=== PATIENT | female | born 2005 | race Two or more races ===

== ENCOUNTER 2025-04-27 16:30 | Emergency (ER) | payer OTHER ==
[~2025-04-27] VITALS: Ht 165.1 cm; Wt 55.8 kg
[2025-04-27] MEDS ORDERED: CLINDAMYCIN PHOSPHATE 150 MG/ML (600mg) IV SCH (18:30)
[2025-04-27] MEDS ORDERED: METHYLPREDNISOLONE SOD SUCC 125 MG VIAL IV SCH (18:30)
[2025-04-27] MEDS ORDERED: DIPHENHYDRAMINE HCL 50 MG/ML VIAL 1ML IV SCH (18:30)
[2025-04-27] MEDS ORDERED: FAMOTIDINE/PF 20 MG/2 ML VIAL IV SCH (18:30)
[2025-04-27] MEDS ORDERED: CLINDAMYCIN PHOSPHATE 150 MG/ML (300mg) ONE (18:40)
[2025-04-27] MEDS ORDERED: DIPHENHYDRAMINE HCL 50 MG/ML VIAL 1ML ONE (18:40)
[2025-04-27] MEDS ORDERED: FAMOTIDINE/PF 20 MG/2 ML VIAL ONE (18:41)
[2025-04-27] MEDS ORDERED: METHYLPREDNISOLONE SOD SUCC 125 MG VIAL ONE (18:41)
[2025-04-27 18:44] LABS: BASO % 0.3 % (0.1-1.2); EOS # 0.09 (0.04-0.54); EOS % 0.9 % (0.7-7.0); HEMATOCRIT 44.3 % (34.1-44.9); HEMOGLOBIN 14.8 g/dL (11.2-15.7); LYMPH # 2.01 (1.18-3.74); LYMPH % 19.1 % (19.3-53.1); MEAN CORPUSCULAR HEMOGLOBIN 31.6 pg (25.6-32.2); MONO # 0.89 (0.24-0.82); MONO % 8.4 % (4.7-12.5); NEUT # 7.51 (1.56-6.13); NEUT % 71.1 % (34.0-71.1); PLATELET COUNT 207 K/uL (163-369); RED BLOOD COUNT 4.68 M/uL (3.93-5.22); RED CELL DISTRIBUTION WIDTH 12.5 % (11.6-14.4)
== END 2025-04-27 22:12 | disposition home or self-care (01) ==
LOC: EMR PED 18:52
PROVIDERS: Emergency Medicine Pediatric Emergency Medicine
DX: R60.0 Localized edema (principal); Z88.0 Allergy status to penicillin; Z88.1 Allergy status to other antibiotic agents